=== PATIENT | male | born 1960 | race Caucasian/White ===

== ENCOUNTER 2017-01-07 10:20 | Emergency (ER) | payer MEDICAID ==
[2017-01-07 10:37] VITALS: BP 126/76
--- NOTE | 2017-01-07 11:19 | ERNOTE ---
Integumentary HPI - General Presenting Symptoms: rash Time Seen by Provider: 01/07/17 11:13 Source: patient - Immun/Allergies/Home Medications Immunizations: IMMUNIZATION HX Immunizations Up to Date Yes History of Influenza Vaccine No Hx Pneumococcal Vaccination No Allergies/Adverse Reactions: Allergies Allergy/AdvReac Type Severity Reaction Status Date / Time pioglitazone HCl [From Actos] Allergy Intermediate SEIZURES, Verified 01/07/17 10:37 EDEMA, FATIGUE, FAILURE TO HELP BLOOD SUGARS Home Medications: HOME MEDICATIONS Omeprazole Magnesium [Prilosec Otc] 20 mg PO DAILY 09/07/13 [Last Taken 06/19/14 ] Atorvastatin Calcium [Lipitor] 40 mg PO DAILY 08/26/14 [Last Taken Unknown] Insulin Lispro Protamin/Lispro [Humalog Mix 75/25] 70 units SQ QPM 08/26/14 [ Last Taken Unknown] Acetaminophen [Tylenol] 650 mg PO QID PRN #1 tablet 08/28/14 [Last Taken Unknown ] Glucagon,Human Recombinant [Glucagen] 1 mg IJ PRN PRN 11/29/14 [Last Taken Unknown] rOPINIRole HCL [Requip] 0.25 mg PO HS 11/29/14 [Last Taken Unknown] Blood Sugar Diagnostic, Drum [Accu-Chek Compact] 1 each MC TID 04/10/16 [Last Taken Unknown] Clopidogrel Bisulfate [Plavix] 75 mg PO DAILY 04/10/16 [Last Taken Unknown] Multivit-Min/FA/Lycopen/Lutein [Centrum Silver Ultra Men's Tab] 1 each PO DAILY 04/10/16 [Last Taken Unknown] Cephalexin Monohydrate [Keflex] 500 mg PO QID #40 cap 04/16/16 [Last Taken Unknown] HYDROcodone/ACETAMINOPHEN [[place] 5-325] 1 tab PO Q4H PRN #40 tab 04/16/16 [Last Taken Unknown] Insulin Lispro Protamin/Lispro [Humalog Mix 75/25] 95 units SQ QAM 04/16/16 [ Last Taken Unknown] Hydrocortisone [Hydrocortisone 2.5% Cream] 30 gm TP DAILY 7 Days 01/07/17 [Last Taken Unknown] - History of Present Illness Narrative: itchy irritated red rash on dorsum of right foot. Has been there for one day Review of Systems - Review of Systems Constitutional: Present: no symptoms reported EYE: Present: no symptoms reported ENT: Present: no symptoms reported Respiratory: Present: no symptoms reported Cardiology: Present: no symptoms reported Skin: Present: See HPI - Patient's Past Medical History Patient History - Medical: Diabetes Type 2 Insulin Dependent, GERD Patient History - Cardiac/Respiratory: COPD, CVA/Stroke, Hypertension, Hyperlipidemia, TIA, Other Patient History - Cancer: No Hx of Cancer Patient History - Surgical Procedures: Other Patient History - Other: None - Family History Mother Family History - Medical: Diabetes Type 2 Family History - Cardiac/Respiratory: No pertinent hx Father Family History - Medical: History Unknown Family History - Cardiac/Respiratory: History Unknown - Social History Living Situations: home Abuse History: No History of abuse Psych History: No pertinent hx Does anyone smoke in the home?: Yes Smoking Status: Former smoker Alcohol Use: none Drug Use: none - Immunizations Immunizations Up to Date: Yes Hx Pneumococcal Vaccination: No History of Influenza Vaccine: No Physical Exam - Physical Exam General Appearance: Present: wd/wn, no apparent distress Neck: Present: normal inspection Respiratory: Present: no respiratory distress, normal breath sounds, no accessory muscle use, chest nontender, lungs clear Cardiovascular/Chest: Present: regular rate, rhythm, no murmur, normal peripheral pulses Skin Exam: Present: other - There is a small area of redness with some scaliness and roughness on dorsum of right foot appears eczematoid in nature. No open lesions noted. ED Progress - Vital Signs Patient's Vital Signs:: I have reviewed the patient's vital signs. Vital Signs: Vital Signs 01/07/17 10:30 Temperature 36.6 C Pulse Rate 80 Respiratory 16 Rate Blood Pressure 126/76 O2 Sat by Pulse 96 Oximetry - Progress/Reassessment Chief Complaint: Rash Plan - Plan Plan: I believe this patient has an area of eczematoid like dermatitis on the dorsal aspect of his right foot he will be treated appropriately. Departure Clinical Impression: Dermatitis, eczematoid Qualifiers: Eczema type: unspecified Qualified Code(s): L30.9 - Dermatitis, unspecified - Departure Disposition: Home self-care Condition: Good Instructions: Eczema Referrals: Moises Harrington MD [Primary Care Provider] - Prescriptions: Hydrocortisone [Hydrocortisone 2.5% Cream] 30 gm TP DAILY 7 Days
--- OUTSIDE RECORDS SUMMARY | 2017-01-07 11:20 | XMS REPORT | Continuity of Care Document ---
:1960 Author Organization [facility] ([facility]) Address [place] [address] Phone [phone] Care Team Providers Name Role Phone Bora Mcdaniel Primary Care Provider [phone] Source Comments This disclosure is being made pursuant to the Care Everywhere program, applicable federal and state laws, and may not contain all informaitonavailable regarding this patient.[facility] ([facility]) Active Allergies and Adverse Reactions No Known Allergies Current Medications Prescription Sig. Disp. Refills Start Date End Date Status pioglitazone (ACTOS) 45 Take 45 mg by mouth Active mg tablet daily. metformin (GLUCOPHAGE) Take 1,000 mg by Active 1,000 mg tablet mouth 2 times daily with meals. glimepiride (AMARYL) 4 Take 4 mg by mouth Active mg tablet Every morning. captopril (CAPOTEN) Take 12.5 mg by Active 12.5 mg tablet mouth daily. BUDESONIDE/FORMOTEROL Use 2 Puffs by Active FUMARATE (SYMBICORT inhalation 2 times INH) daily. SERTraline (ZOLOFT) 25 Take one Tab by 30 Tab 4 04/26/2010 Active mg tablet mouth daily for 3 days then take two Tabs by mouth once daily thereafter. Indications: Depression Active Problems Not on file Social History Tobacco Use Types Packs/Day Years Used Date Never Smoker Alcohol Use Drinks/Week oz/Week Comments No Last Filed Vital Signs Vital Sign Reading Time Taken Blood Pressure 106/71 04/26/2010 8:00 AM CDT Pulse 73 04/26/2010 8:00 AM CDT Temperature 35.7 C (96.3 F) 04/26/2010 8:00 AM CDT Respiratory Rate 20 04/26/2010 8:00 AM CDT Height 1.778 m (5' 10") 04/23/2010 1:13 PM CDT Weight 107.956 kg (238 lb) 04/23/2010 1:13 PM CDT Body Mass Index 34.15 04/23/2010 1:13 PM CDT Oxygen Saturation 95% 04/26/2010 8:00 AM CDT Plan of Care Health Maintenance Due Date Last Done Comments HCV Screening 1960 Hepatitis B Vaccine (1 of 3 - Primary Series) 1960 Tdap Vaccine 1969 Lipid Disorder Screening 01/18/1976 MMR Vaccine 01/18/1976 Td Vaccine 01/18/1976 Pneumococcal Vaccine (1 of 1 - PPSV23) 1977 Colonoscopy 2008 Prostate Cancer Screening 01/18/2008 Influenza Vaccine: Seasonal (#1) 05/06/2016 Results from Last 3 Months Not on file
== END 2017-01-07 11:18 | disposition home or self-care (01) ==
LOC: ER 10:20
DX: L30.9 Dermatitis, unspecified (principal); Z87.891 Personal history of nicotine dependence

== ENCOUNTER 2017-03-10 20:19 | Emergency (ER) | payer MEDICAID ==
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
[2017-03-10] MEDS ORDERED: KETOROLAC TROMETHAMINE 60 MG/2 ML VIAL IM ONE ×2 (21:06→21:24)
--- OUTSIDE RECORDS SUMMARY | 2017-03-10 21:09 | XMS REPORT | Continuity of Care Document ---
:1960 Author Organization [facility] ([facility]) Address [place] [address] Phone [phone] Care Team Providers Name Role Phone Bora Mcdaniel Primary Care Provider [phone] Source Comments This disclosure is being made pursuant to the Care Everywhere program, applicable federal and state laws, and may not contain all informaitonavailable regarding this patient.[facility] ([facility]) Active Allergies and Adverse Reactions No Known [...]
[2017-03-10 21:20] LABS: Hematocrit 47.8 % (42.0-52.0); Mean Cell Volume 90.2 fl (78-100); Mean Corpuscular Hemoglobin 30.2 pg (27-31); Mean Corpuscular Hgb Conc 33.5 g/dl (32-36); Mean Platelet Volume 10.1 fl (6.0-9.5); Platelet Count 358 K/mm3 (150-450); White Blood Count 13.1 K/mm3 (4.0-10.5)
[2017-03-10 21:26] LABS: Total Cells Counted 100
[2017-03-10 21:34] LABS: ALT 33 U/L (19-67); AST 18 U/L (0-48); Albumin * 3.8 gm/dl (3.4-5.0); Alkaline Phosphatase * 126 U/L (50-170); Anion Gap 13.4 mmol/L (6.8-13.8); BUN/Creatinine Ratio 14.7 (9.0-21.6); Bilirubin, Total 0.3 mg/dL (0.0-1.1); Blood Urea Nitrogen 17 mg/dL (6-23); Ca. Corrected For Albumin 9.2 mg/dL (8.4-10.2); Calcium * 9.4 mg/dL (7.9-10.9); Carbon Dioxide 29.7 mmol/L (24-32.6); Chloride 104 mmol/L (97-106); Glucose * 127 mg/dL (70-110); Lipase 114 U/L (73-393); Potassium 4.1 mmol/L (3.4-4.6); Sodium 143 mmol/L (132-142); Total Protein 7.6 gm/dL (6.2-8.2)
[2017-03-10 22:01] LABS: Eosinophil 3 % (0-3); Lymphocyte 41 % (20-51); Monocyte 6 % (0-9); Neutrophil 50 % (42-75); Neutrophil # 6.6 K/mm3 (1.3-6.0)
[2017-03-10 22:04] LABS: Dohle Bodies Trace; Platelet Estimate Normal (NORMAL); RBC Morphology Normal (NORMAL); Toxic Granulation Trace
[2017-03-10 22:06] LABS: Urine Bilirubin Negative (NEGATIVE); Urine Blood Negative /ul (NEGATIVE); Urine Ketone Negative (NEGATIVE); Urine Nitrite Negative (NEGATIVE); Urine Protein Negative (NEGATIVE); Urine Urobilinogen Normal (NORMAL)
[2017-03-10 22:14] LABS: Urine Appearance Clear; Urine Color Yellow
[2017-03-10 22:15] LABS: Urine Bacteria None Seen; Urine RBC None Seen /hpf (0-5); Urine WBC None Seen /hpf (0-5)
[2017-03-10 23:58] VITALS: BP 128/74
== END 2017-03-10 23:50 | disposition home or self-care (01) ==
LOC: ER 20:19
DX: R10.11 Right upper quadrant pain (principal); E11.9 Type 2 diabetes mellitus without complications; Z79.4 Long term (current) use of insulin; K21.9 Gastro-esophageal reflux disease without esophagitis; J44.9 Chronic obstructive pulmonary disease, unspecified; Z86.73 Personal history of transient ischemic attack (TIA), and cerebral infarction without residual deficits; I10 Essential (primary) hypertension; E78.5 Hyperlipidemia, unspecified

== ENCOUNTER 2020-11-14 13:05 | Observation (INO) ==
[2020-11-14 13:36] LABS: Hematocrit 49.3 % (42.0-52.0); Hemoglobin 15.9 gm/dL (13.5-18.0); Mean Cell Volume 93.9 fl (78-100); Mean Corpuscular Hemoglobin 30.3 pg (27-31); Mean Corpuscular Hgb Conc 32.3 g/dl (32-36); Mean Platelet Volume 9.6 fl (8-11.3); Neutrophil # 5.4 K/mm3 (1.3-6.0); Neutrophil % 52.3 % (42-75.0); Platelet Count 315 K/mm3 (150-450); Red Blood Count 5.25 M/mm3 (4.7-6.0); Red Cell Distribution Width 14.2 % (11.5-14.0); White Blood Count 10.4 K/mm3 (4.0-10.5)
[2020-11-14 13:51] LABS: ALT 43 U/L (19-67); AST 20 U/L (0-48); Albumin * 3.8 gm/dl (3.4-5.0); Alkaline Phosphatase * 117 U/L (50-170); Anion Gap 12.5 mmol/L (6.8-13.8); BUN/Creatinine Ratio 16.2 (9.0-21.6); Bilirubin, Total 0.3 mg/dL (0.0-1.1); Blood Urea Nitrogen 18 mg/dL (6-23); Ca. Corrected For Albumin 8.9 mg/dL (8.4-10.2); Calcium * 9.1 mg/dL (7.9-10.9); Carbon Dioxide 27.1 mmol/L (24-32.6); Chloride 104 mmol/L (97-106); Glucose * 175 mg/dL (70-110); Potassium 4.6 mmol/L (3.4-4.6); Sodium 139 mmol/L (132-142); Total Protein 7.3 gm/dL (6.2-8.2); Troponin I Less than 0.017 ng/mL (0.00-0.10)
--- NOTE | 2020-11-14 14:29 | ERNOTE ---
Chest Pain/Cardiac HPI Date of Service: 11/14/20 Chief Complaint: Chest Pain Time Seen by Provider: 11/14/20 13:09 Source: patient, family, EMS, RN notes reviewed Exam Limitations: no limitations Immunizations: IMMUNIZATION HX Immunizations Up to Date Yes History of Influenza Vaccine Yes Hx Pneumococcal Vaccination Yes Allergies/Adverse Reactions: Allergies pioglitazone HCl [From Actos] Allergy (Intermediate, Verified 11/14/20 13:14) SEIZURES, EDEMA, FATIGUE, FAILURE TO HELP BLOOD SUGARS Home Medications: HOME MEDICATIONS Omeprazole Magnesium [Prilosec Otc] 20 mg PO DAILY 09/07/13 [Last Taken 06/19/14] Acetaminophen [Tylenol] 650 mg PO QID PRN #1 tab 08/28/14 [Last Taken Unknown] ibuprofen 800 mg tablet 800 mg PO TID #90 tab 11/18/18 [Last Taken Unknown] insulin syringe-needle U-100 0.5 mL 29 gauge x 1/2" See Dose Instructions .ROUTE .MEDSUPPLY #100 ea 05/31/19 [Last Taken Unknown] aspirin 81 mg tablet,delayed release 81 mg PO DAILY 07/26/19 [Last Taken Unknown] CPAP 0 .ROUTE .MEDSUPPLY #1 ea 11/02/19 [Last Taken Unknown] Nitroglycerin 0.4 mg SL PRN PRN 11/17/19 [Last Taken Unknown] pirfenidone 267 mg tablet 267 mg PO TID 12/10/19 [Last Taken Unknown] rosuvastatin 40 mg tablet 40 mg PO DAILY #30 tab 12/28/19 [Last Taken Unknown] tiotropium bromide 18 mcg capsule with inhalation device 1 cap IH DAILY #30 inh 02/14/20 [Last Taken Unknown] ropinirole 0.25 mg tablet 0.25 mg PO HS #90 tab 02/21/20 [Last Taken Unknown] metoprolol succinate 50 mg tablet,extended release 24 hr 50 mg PO DAILY #90 tab 03/13/20 [Last Taken Unknown] albuterol sulfate 1.25 mg IH Q4H PRN #90 ml 06/15/20 [Last Taken Unknown] levothyroxine 50 mcg tablet 50 mcg PO DAILY #90 tab 06/15/20 [Last Taken Unknown] blood sugar diagnostic See Rx Instructions .ROUTE .COMPLEX #100 ea 08/09/20 [Last Taken Unknown] insulin syringe-needle U-100 1 mL 31 gauge x 5/16" See Dose Instructions .ROUTE .MEDSUPPLY #100 ea 08/16/20 [Last Taken Unknown] insulin lispro protamine-lispro 100 unit/mL (75-25) subcutaneous susp See Rx Instructions SUBCUT DAILY #60 ml 09/27/20 [Last Taken Unknown] budesonide-formoterol HFA 160 mcg-4.5 mcg/actuation aerosol inhaler See Rx Instructions .ROUTE .COMPLEX #10.2 unknown measurement unit code: gram 09/28/20 [Last Taken Unknown] insulin detemir U-100 100 unit/mL (3 mL) subcutaneous pen 30 unit SUBCUT DAILY #15 ml 10/16/20 [Last Taken Unknown] pen needle, diabetic 29 gauge x 1/2" See Rx Instructions .ROUTE .MEDSUPPLY #100 ea 10/17/20 [Last Taken Unknown] Cyclobenzaprine HCl [Flexeril] 10 mg PO TID PRN #20 tab 11/09/20 [Last Taken Unknown] Narrative: Matthieu is a 60-year-old male brought to the emergency department by ambulance from his home for chest pain. He reports that a short while ago he was just sitting at home, not doing anything in particular, when he began having left-sided chest pain. He also reports feeling short of breath at the time. He states that he felt as if someone was sitting on his chest. He took 2 nitro without improvement. When EMS arrived he was given an additional 2 nitro. His pain is currently resolved. He seems very groggy and does not appear to feel well. He reports that he was feeling fine all morning until this episode. He was recently seen for back pain due to a fall on the ice. He was prescribed Flexeril but his reports that he is only been taking this at bedtime. Date (Duration): 11/14/20 Timing: resolved prior to arrival Severity/Quality: severe, pressure Location: left chest Chest Pain Radiation: no radiation Activities at Onset: rest Modifying Factors - Improves: Present: nitroglycerin Modifying Factors - Worsens: Present: nothing Aspirin Treatment Today: 81 mg x 4, provided by EMS Associated Symptoms: Absent: cough, fever/chills, nausea, vomiting, back pain Prior Treatment: Reports: recently seen Medical History (Last Reviewed 11/14/20 @ 16:00 by Maryjane Pleitez NP) Neuropathy (Chronic) Onset Date: ~01/30/11 Left ventricular hypertrophy (Chronic) Onset Date: ~08/31/14 Mild concentric left ventricular hypertrophy diastolic dysfunction [facility] echo 08/29/14 Hypertension (Chronic) Onset Date: ~12/28/13 Heartburn (Chronic) Onset Date: Unknown Erectile dysfunction (Chronic) Onset Date: Unknown COPD (chronic obstructive pulmonary disease) (Chronic) Onset Date: ~04/10/16 Muscle strain Onset Date: ~07/23/15 right gastrocnemius Pulmonary fibrosis Pulmonary fibrosis TIA (transient ischemic attack) Onset Date: ~09/15/14 Surgical History: Surgical History (Last Reviewed 11/14/20 @ 16:00 by Maryjane Pleitez NP) H/O hernia repair Onset Date: ~1998 Repaired 5 hernias History of splenectomy Onset Date: ~1996 Family History: Family History (Last Reviewed 11/14/20 @ 16:00 by Maryjane Pleitez NP) Other Cancer Diabetes Heart disease Hypertension Social History: (Last Reviewed 11/14/20 @ 16:00 by Maryjane Pleitez NP) Social History: adopted: No Marital status: lives independently: Yes household members: spouse number of children: 2 current occupational status: employed current occupation: [employer] Highest level of school completed/degree received: high school graduate Service: Yes Tobacco: Smoking Status: Former smoker Alcohol: alcohol intake: current Alcohol type: hard liquor alcohol intake frequency: holiday/special occasion details: ocassional shot of bourbon Substance Use: substance use type: does not use Dietary Habits: caffeine: Yes Physical Exam - Physical Exam General Appearance: Present: alert, obese, other - In no acute distress but appears to not feel well Head Exam: Present: normal inspection Eye Exam: Normal inspection: bilateral Neck: Present: normal inspection, nontender, supple Respiratory: Present: no respiratory distress, normal breath sounds, no accessory muscle use, lungs clear Cardiovascular/Chest: Present: regular rate, rhythm, no murmur, normal peripheral pulses Gastrointestinal/Abdominal: Present: nontender, soft, distended - Obese Extremity Exam: Present: normal inspection, non-tender, no edema Neurological Exam: Present: alert, oriented, normal mood/affect, no motor/sensory deficits Skin Exam: Present: normal color, warm/dry Progress - Results and Orders Patient's Lab Results:: I have reviewed the patient's lab results. - Vital Signs Patient's Vital Signs:: I have reviewed the patient's vital signs. Vital Signs: Vital Signs 11/14/20 13:07 Temperature 36.6 C Pulse Rate 95 Respiratory Rate 19 Blood Pressure 125/75 O2 Sat by Pulse Oximetry 98 - EKG EKG #1 EKG: NSR EKG read: Reviewed by me - Progress/Reassessment Chief Complaint: Chest Pain Progress:: Improved Progress Note-Subjective: 11/14/20 14:35 EKG is without acute findings and troponin is normal, the patient has had no further chest pain however he is groggy and generally ill appearing. Dr. Susan Sotelo was contacted and agreed to admit the patient for observation pending COVID-19 test results. Departure Clinical Impression: Chest pain, rule out acute myocardial infarction - Departure Disposition: Still a patient Condition: Stable Referrals: Moises Harrington MD [Primary Care Provider] -
[2020-11-14] MEDS ORDERED: ACETAMINOPHEN 325 MG TABLET PO PRN (18:36)
[2020-11-14] MEDS ORDERED: CYCLOBENZAPRINE HCL 10 MG TABLET PO PRN (18:36)
[2020-11-14] MEDS ORDERED: ALBUTEROL SULFATE 200 PUFF INHALER IH PRN (18:43)
[2020-11-14] MEDS ORDERED: NITROGLYCERIN 0.4 MG/TAB BTL SL PRN (18:45)
--- NOTE | 2020-11-14 19:01 | HP ---
Chief Complaint - Chief Complaint Date of Service: 11/14/20 Time of Service: 18:20 Chief Complaint: Chest Pain History of Present Illness: Matthieu is a 60-year-old diabetic male brought to the emergency department by ambulance from his home for chest pain. Just before noon he developed left sided chest pain while sitting at home. He reports feeling short of breath and nauseated at the time. The pain did not radiate. He states that he felt as if someone was sitting on his chest. He took 2 nitro without improvement. When EMS arrived he was given an additional 2 nitro. His pain was almost gone when he reached the ER and is pain free now. He had similar pain just prior to three coronary artery stents. The ER provider explained that in the ER he looked very groggy and didn't appear to feel well. He looks to be his normal self to me at the time of this exam. He reports that he was feeling fine all morning until this episode. He was recently seen for lower back pain due to a fall on the ice. He was prescribed Flexeril but his reports that he is only been taking this at bedtime. That pain has improved. Workup in the ER was nonrevealing. His bonding machine operator is at the [facility]. We will repeat EKG and troponin 6 hours after the first set. Sometime tomorrow I will work at communicating with his bonding machine operator. We will continue to monitor him here. I did not prescribe his usual Pirfenidone 267 mg po tid for his pulmonary fibrosis because it is not on formulary here. Medical History (Last Reviewed 11/14/20 @ 18:53 by Moises Harrington MD) Neuropathy (Chronic) Onset Date: ~01/30/11 Left ventricular hypertrophy (Chronic) Onset Date: ~08/31/14 Mild concentric left ventricular hypertrophy diastolic dysfunction [facility] echo 08/29/14 Hypertension (Chronic) Onset Date: ~12/28/13 Heartburn (Chronic) Onset Date: Unknown Erectile dysfunction (Chronic) Onset Date: Unknown COPD (chronic obstructive pulmonary disease) (Chronic) Onset Date: ~04/10/16 Muscle strain Onset Date: ~07/23/15 right gastrocnemius Pulmonary fibrosis Pulmonary fibrosis TIA (transient ischemic attack) Onset Date: ~09/15/14 Surgical History: Surgical History (Last Reviewed 11/14/20 @ 18:53 by Moises Harrington MD) Hx of heart artery stent H/O hernia repair Onset Date: ~1998 Repaired 5 hernias History of splenectomy Onset Date: ~1996 Family History: Family History (Last Reviewed 11/14/20 @ 18:53 by Moises Harrington MD) Other Cancer Diabetes Heart disease Hypertension Patient's mother is Social History: (Last Reviewed 11/14/20 @ 18:54 by Moises Harrington MD) Social History: adopted: No Marital status: lives independently: Yes household members: spouse number of children: 2 current occupational status: employed current occupation: [employer] Highest level of school completed/degree received: high school graduate Service: Yes Tobacco: Smoking Status: Former smoker Alcohol: alcohol intake: current Alcohol type: hard liquor alcohol intake frequency: holiday/special occasion details: ocassional shot of bourbon Substance Use: substance use type: does not use Dietary Habits: caffeine: Yes Review Of Systems (GEN) - Review of Systems Generalized/Overall Review: Present: No Symptoms Reported EENTM: Present: No Symptoms Reported Respiratory: Present: Cough - his normal chronic cough Cardiac: Present: No Symptoms Reported - the pressure like chest pain is now gone Abdominal: Present: No Symptoms Reported Genitourinary: Present: No Symptoms Reported Musculoskeletal: Present: No Symptoms Reported Neurological: Present: Numbness - both feet from diabetes Skin: Present: No Symptoms Reported Endocrine: Present: No Symptoms Reported Misc: All systems neg except as marked Immunizations: IMMUNIZATION HX Immunizations Up to Date Yes History of Influenza Vaccine Yes Hx Pneumococcal Vaccination Yes Allergies/Adverse Reactions: Allergies Allergy/AdvReac Type Severity Reaction Status Date / Time pioglitazone HCl [From Actos] Allergy Intermediate SEIZURES, Verified 11/14/20 13:14 EDEMA, FATIGUE, FAILURE TO HELP BLOOD SUGARS Home Medications: HOME MEDICATIONS RX: Omeprazole Magnesium [Prilosec Otc] 20 mg PO DAILY 09/07/13 [Last Taken 06/19/14] Acetaminophen [Tylenol] 650 mg PO QID PRN #1 tab 08/28/14 [Last Taken Unknown] ibuprofen 800 mg tablet 800 mg PO TID #90 tab 11/18/18 [Last Taken Unknown] insulin syringe-needle U-100 0.5 mL 29 gauge x 1/2" See Dose Instructions .ROUTE .MEDSUPPLY #100 ea 05/31/19 [Last Taken Unknown] aspirin 81 mg tablet,delayed release 81 mg PO DAILY 07/26/19 [Last Taken Unknown] CPAP 0 .ROUTE .MEDSUPPLY #1 ea 11/02/19 [Last Taken Unknown] RX: Nitroglycerin 0.4 mg SL PRN PRN 11/17/19 [Last Taken Unknown] pirfenidone 267 mg tablet 267 mg PO TID 12/10/19 [Last Taken Unknown] rosuvastatin 40 mg tablet 40 mg PO DAILY #30 tab 12/28/19 [Last Taken Unknown] tiotropium bromide 18 mcg capsule with inhalation device 1 cap IH DAILY #30 inh 02/14/20 [Last Taken Unknown] ropinirole 0.25 mg tablet 0.25 mg PO HS #90 tab 02/21/20 [Last Taken Unknown] metoprolol succinate 50 mg tablet,extended release 24 hr 50 mg PO DAILY #90 tab 03/13/20 [Last Taken Unknown] albuterol sulfate 1.25 mg IH Q4H PRN #90 ml 06/15/20 [Last Taken Unknown] levothyroxine 50 mcg tablet 50 mcg PO DAILY #90 tab 06/15/20 [Last Taken Unknown] blood sugar diagnostic See Rx Instructions .ROUTE .COMPLEX #100 ea 08/09/20 [Last Taken Unknown] insulin syringe-needle U-100 1 mL 31 gauge x 5/16" See Dose Instructions .ROUTE .MEDSUPPLY #100 ea 08/16/20 [Last Taken Unknown] insulin lispro protamine-lispro 100 unit/mL (75-25) subcutaneous susp See Rx Instructions SUBCUT DAILY #60 ml 09/27/20 [Last Taken Unknown] budesonide-formoterol HFA 160 mcg-4.5 mcg/actuation aerosol inhaler See Rx Instructions .ROUTE .COMPLEX #10.2 unknown measurement unit code: gram 09/28/20 [Last Taken Unknown] insulin detemir U-100 100 unit/mL (3 mL) subcutaneous pen 30 unit SUBCUT DAILY #15 ml 10/16/20 [Last Taken Unknown] pen needle, diabetic 29 gauge x 1/2" See Rx Instructions .ROUTE .MEDSUPPLY #100 ea 10/17/20 [Last Taken Unknown] Cyclobenzaprine HCl [Flexeril] 10 mg PO TID PRN #20 tab 11/09/20 [Last Taken Unknown] Exam - Exam Vital Signs: Vital Signs - Last Taken Temp 36.7 C 11/14/20 18:36 Pulse 94 11/14/20 18:36 Resp 16 11/14/20 18:36 BP 128/68 11/14/20 18:36 Pulse Ox 97 11/14/20 18:36 Constitutional: Present: Alert, Oriented x3, Cooperative, Well developed, Morbidly obese ENT Exam: Present: normal ENT inspection, hearing grossly normal Eye Exam: bilateral eye: normal inspection, PERRL, EOMI Neck: Absent: lymphadenopathy (R), lymphadenopathy (L), thyromegaly Back Exam: Present: normal inspection, vertebral tenderness - low back from fall Breasts: Present: Other - male Respiratory: Present: lungs clear, no respiratory distress, decreased breath sounds Cardiovascular/Chest: Present: regular rate, rhythm, no chest tenderness, no gallop, no JVD, no murmur Peripheral Pulses: carotid (R): 1+, carotid (L): 1+, femoral (R): 1+, femoral (L): 1+ Abdomen: Present: Normal bowel sounds, soft, nontender, nondistended, no hepatospenomegaly, no masses, obese /Rectal: Present: Exam deferred Extremity: Present: normal capillary refill, other - slight edema both lower legs Skin Exam: Present: normal color, warm/dry, no cyanosis Lymphatic: Present: no adenopathy Neurologic: Present: normal mood/affect Appearance: Present: appropriate appearance, appropriate insight, neat Eye contact: Present: cooperative, good eye contact, normal speech Diagnostic Studies: Abnormal Lab Results 11/14/20 11/14/20 Range/Units 13:27 13:27 RDW 14.2 H (11.5-14.0) % Immature Gran % (Auto) 0.50 H (0.001-0.429) % Immature Gran # (Auto) 0.05 H (0.000-0.0310) K/mm3 Monocytes % 12.4 H (0.0-9) % Eosinophils % 3.2 H (0.0-3.0) % Monocytes # 1.3 H (0.0-1.0) k/mm3 Random Glucose 175 H (70-110) mg/dL Laboratory Results WBC 10.4 K/mm3 (4.0-10.5) 11/14/20 13:27 RBC 5.25 M/mm3 (4.7-6.0) 11/14/20 13:27 Hgb 15.9 gm/dL (13.5-18.0) 11/14/20 13:27 Hct 49.3 % (42.0-52.0) 11/14/20 13:27 MCV 93.9 fl (78-100) 11/14/20 13:27 MCH 30.3 pg (27-31) 11/14/20 13:27 MCHC 32.3 g/dl (32-36) 11/14/20 13:27 RDW 14.2 % (11.5-14.0) H 11/14/20 13:27 Plt Count 315 K/mm3 (150-450) 11/14/20 13:27 MPV 9.6 fl (8-11.3) 11/14/20 13:27 Immature Gran % (Auto) 0.50 % (0.001-0.429) H 11/14/20 13:27 Immature Gran # (Auto) 0.05 K/mm3 (0.000-0.0310) H 11/14/20 13:27 Neutrophils % 52.3 % (42-75.0) 11/14/20 13:27 Lymphocytes % 31.0 % (20-51) 11/14/20 13:27 Monocytes % 12.4 % (0.0-9) H 11/14/20 13:27 Eosinophils % 3.2 % (0.0-3.0) H 11/14/20 13:27 Basophils % 0.6 % (0.0-1.0) 11/14/20 13:27 Nucleated RBC % 0.0 k/mm3 (0-1) 11/14/20 13:27 Neutrophils # 5.4 K/mm3 (1.3-6.0) 11/14/20 13:27 Lymphocytes # 3.21 k/mm3 (1.5-3.5) 11/14/20 13:27 Monocytes # 1.3 k/mm3 (0.0-1.0) H 11/14/20 13:27 Eosinophils # 0.3 k/mm3 (0.0-0.7) 11/14/20 13:27 Absolute Basophils 0.1 k/mm3 (0.0-0.1) 11/14/20 13:27 D-Dimer 0.41 ug/mL (0.19-0.49) 11/14/20 13:27 Sodium 139 mmol/L (132-142) 11/14/20 13:27 Plasma Sodium 140 mmol/L (130-142) 11/14/20 13:27 Potassium 4.6 mmol/L (3.4-4.6) 11/14/20 13:27 Chloride 104 mmol/L (97-106) 11/14/20 13:27 Carbon Dioxide 27.1 mmol/L (24-32.6) 11/14/20 13:27 Anion Gap 12.5 mmol/L (6.8-13.8) 11/14/20 13:27 BUN 18 mg/dL (6-23) 11/14/20 13:27 Creatinine 1.11 mg/dL (0.4-1.4) 11/14/20 13:27 Est GFR (Non-Af Amer) 71 mL/min (60-130) 11/14/20 13:27 BUN/Creatinine Ratio 16.2 (9.0-21.6) 11/14/20 13:27 Random Glucose 175 mg/dL (70-110) H 11/14/20 13:27 Calcium 9.1 mg/dL (7.9-10.9) 11/14/20 13:27 Calcium Adj for Albumin 8.9 mg/dL (8.4-10.2) 11/14/20 13:27 Total Bilirubin 0.3 mg/dL (0.0-1.1) 11/14/20 13:27 AST 20 U/L (0-48) 11/14/20 13:27 ALT 43 U/L (19-67) 11/14/20 13:27 Alkaline Phosphatase 117 U/L (50-170) 11/14/20 13:27 Troponin I Less than 0.017 ng/mL (0.00-0.10) 11/14/20 13:27 Total Protein 7.3 gm/dL (6.2-8.2) 11/14/20 13:27 Albumin 3.8 gm/dl (3.4-5.0) 11/14/20 13:27 SARS-CoV-2 (PCR) Not detected (NotDetected) 11/14/20 14:37 Assessment/Plan - Assessment/Plan (1) Chest pain, rule out acute myocardial infarction Problem: Acute (2) Unstable angina Assessment: sequential troponin and panel monitor in hospital contact his bonding machine operator tomorrow Problem: Acute (3) Hypertension Problem: Chronic Qualifiers: Hypertension type: essential hypertension (4) BMI 40.0-44.9, adult Problem: Chronic (5) Status post coronary artery stent placement Problem: Chronic (6) Type 2 diabetes mellitus Problem: Chronic Qualifiers: Diabetes mellitus exterminator helper insulin use: with assisted use Diabetes mellitus complication status: with neurologic complications Diabetes mellitus complication detail: with polyneuropathy Qualified Code(s): E11.42 - Type 2 diabetes mellitus with diabetic polyneuropathy; Z79.4 - [facility]iary (current) use of insulin (7) DAHLIA on CPAP Assessment: we will continue CPAP when sleeping Problem: Chronic (8) Pulmonary fibrosis Assessment: we did not prescribe pirfenidone tonight because it is not on hospital formulary. Problem: Chronic
[2020-11-14] MEDS: FLUTICASONE PROPION/SALMETEROL 14 PUFF DISK.W.DEV IH SCH (20:14)
[2020-11-14] MEDS ORDERED: rOPINIRole HCL 0.5 MG TABLET PO SCH (21:00)
[2020-11-15] MEDS ORDERED: INSUL NPH HU REC/INS RG HU REC 100 UNITS/ML VIAL SC SCH (07:00)
[2020-11-15] MEDS ORDERED: LEVOTHYROXINE SODIUM 50 MCG TABLET PO SCH (07:00)
--- NOTE | 2020-11-15 07:19 | PN ---
Subjective - Date and Time Seen Date: 11/15/20 Time: 06:30 Subjective Narrative: Matthieu is a 60-year-old diabetic male brought to the emergency department yesterday by ambulance from his home for chest pain. Just before noon he developed left sided chest pain while sitting at home. He reported feeling short of breath and nauseated at the time. The pain did not radiate. He stated that he felt as if someone was sitting on his chest. He took 2 nitro without improvement. When EMS arrived he was given an additional 2 nitro. His pain was almost gone when he reached the ER and he has remained pain free since. He had similar pain just prior to three coronary artery stents. The ER provider explained that in the ER he looked very groggy and didn't appear to feel well. He looks to be his normal self to me this morning. His lower back pain due to a fall on the ice is improving. He was prescribed Flexeril but his reported that he is only took that at bedtime. Workup in the ER was nonrevealing. He corrected me this morning: his tongue carrier is at [facility]. I will work at speaking with one of them this morning to help determine further evaluation/treatment. Objective - Review of Systems Generalized/Overall Review: Reports: No Symptoms Reported - fingerstick b.s. last night was 190 EENTM: Reports: No Symptoms Reported Respiratory: Reports: Cough - chronic, no change, former smoker, also has pulmonary fibrosis Cardiac: Reports: No Symptoms Reported Abdominal: Reports: No Symptoms Reported Genitourinary Symptoms: Reports: No Symptoms Reported Musculoskeletal Complaints: Reports: No Symptoms Reported Neurological: Reports: No Symptoms Reported Skin: Reports: No Symptoms Reported Endocrine: Reports: No Symptoms Reported Misc: All systems neg except as marked - Vitals Vitals: Last Vital Signs Temp 37.7 C 11/15/20 06:00 Pulse 82 11/15/20 06:00 Resp 13 11/15/20 06:00 BP 141/75 11/15/20 06:00 Pulse Ox 93 11/15/20 06:00 - Abnormal Lab Findings Abnormal Lab Findings: Abnormal Lab Results 11/14/20 11/14/20 Range/Units 13:27 13:27 RDW 14.2 H (11.5-14.0) % Immature Gran % (Auto) 0.50 H (0.001-0.429) % Immature Gran # (Auto) 0.05 H (0.000-0.0310) K/mm3 Monocytes % 12.4 H (0.0-9) % Eosinophils % 3.2 H (0.0-3.0) % Monocytes # 1.3 H (0.0-1.0) k/mm3 Random Glucose 175 H (70-110) mg/dL - Exam Constitutional: Present: Alert, Oriented x3, Cooperative, Well developed, Obese ENT Exam: Present: normal ENT inspection, hearing grossly normal Neck: Absent: lymphadenopathy (R), lymphadenopathy (L), thyromegaly Breasts: Present: Other - male Respiratory: Present: lungs clear, no respiratory distress Cardiovascular/Chest: Present: regular rate, rhythm, no gallop, no JVD, no murmur Abdomen: Present: Normal bowel sounds, soft, nontender, nondistended, no hepatospenomegaly, no masses, obese /Rectal: Present: Exam deferred Extremity: Present: normal capillary refill, lower extremity edema - minimal Skin Exam: Present: normal color, warm/dry, no cyanosis Lymphatic: Present: no adenopathy Neurologic: Present: normal mood/affect Appearance: Present: appropriate appearance, appropriate insight, neat Eye contact: Present: cooperative, good eye contact, normal speech Thoughts: Present: normal thought pattern Assessment/Plan - Problems/Diagnosis (1) Chest pain, rule out acute myocardial infarction Problem: Acute (2) Unstable angina Problem: Acute (3) Hypertension Problem: Chronic Qualifiers: Hypertension type: essential hypertension Narrative: sequential troponins and EKGs normal. will try to contact his tongue carrier at [facility], this morning. will continue to monitor in hospital. (4) BMI 40.0-44.9, adult Problem: Chronic (5) Status post coronary artery stent placement Problem: Chronic (6) Type 2 diabetes mellitus Problem: Chronic Qualifiers: Diabetes mellitus half-way insulin use: with half-way use Diabetes mellitus complication status: with neurologic complications Diabetes mellitus complication detail: with polyneuropathy Qualified Code(s): E11.42 - Type 2 diabetes mellitus with diabetic polyneuropathy; Z79.4 - [facility] (current) use of insulin (7) DAHLIA on CPAP Problem: Chronic (8) Pulmonary fibrosis Problem: Chronic
[2020-11-15] MEDS ORDERED: ALBUTEROL SULFATE 2.5 MG/0.5 ML VIAL.NEB IH PRN (07:45)
[2020-11-15] MEDS: FLUTICASONE PROPION/SALMETEROL 14 PUFF DISK.W.DEV IH SCH (08:34)
--- NOTE | 2020-11-15 08:40 | DS ---
(1) Chest pain, rule out acute myocardial infarction Problem: Resolved (2) Unstable angina Problem: Resolved (3) Hypertension Problem: Chronic Qualifiers: Hypertension type: essential hypertension Qualified Code(s): I10 - Essential (primary) hypertension (4) BMI 40.0-44.9, adult Problem: Chronic (5) Status post coronary artery stent placement Problem: Chronic (6) Type 2 diabetes mellitus Problem: Chronic Qualifiers: Diabetes mellitus terminal clerk insulin use: with terminal clerk use Diabetes mellitus complication status: with neurologic complications Diabetes mellitus complication detail: with polyneuropathy Qualified Code(s): E11.42 - Type 2 diabetes mellitus with diabetic polyneuropathy; Z79.4 - superintendent marine oil terminal (current) use of insulin (7) DAHLIA on CPAP Problem: Chronic (8) Pulmonary fibrosis Problem: Chronic Date of Discharge:: 11/15/20 Hospital Course: Matthieu is a 60-year-old diabetic male brought to the emergency department yesterday by ambulance from his home for chest pain. Just before noon yesterday he developed left sided chest pain while sitting at home. He reported feeling short of breath and nauseated at the time. The pain did not radiate. He stated that he felt as if someone was sitting on his chest. He took 2 nitro without improvement. When EMS arrived he was given an additional 2 nitro. His pain was almost gone when he reached the ER and he has remained pain free since. He had similar pain just prior to three coronary artery stents. The ER provider explained that in the ER he looked very groggy and didn't appear to feel well. He looks to be his normal self to me this morning. He has lower back pain due to a fall on the ice recently which is improving. He was prescribed Flexeril for that but his reported that he only took it at bedtime. Workup in the ER was nonrevealing. I spoke with his industrial energy engineer at [facility] in [place], Dr. Adams, this morning about 8:30. I explained the situation. He told me Matthieu can go home. He asked me to prescribe long acting nitroglycerin 30 mg daily. His nurse will call Matthieu to set up an appt with him or with one of his colleagues. He said if Matthieu develops chest pain again, he should take sublingual nitroglycerin, and if the pain goes away, he should call their office. He said if the chest pain is severe or prolonged he should again call 911. Procedures Performed: none Results and Findings: Lab Pending Results 11/14/20 13:27: WBC 10.4, RBC 5.25, Hgb 15.9, Hct 49.3, MCV 93.9, MCH 30.3, MCHC 32.3, RDW 14.2 H, Plt Count 315, MPV 9.6, Immature Gran % (Auto) 0.50 H, Immature Gran # (Auto) 0.05 H, Neutrophils % 52.3, Lymphocytes % 31.0, Monocytes % 12.4 H, Eosinophils % 3.2 H, Basophils % 0.6, Nucleated RBC % 0.0, Neutrophils # 5.4, Lymphocytes # 3.21, Monocytes # 1.3 H, Eosinophils # 0.3, Absolute Basophils 0.1 11/14/20 13:27: Sodium 139, Plasma Sodium 140, Potassium 4.6, Chloride 104, Carbon Dioxide 27.1, Anion Gap 12.5, BUN 18, Creatinine 1.11, Est GFR (Non-Af Amer) 71, BUN/Creatinine Ratio 16.2, Random Glucose 175 H, Calcium 9.1, Calcium Adj for Albumin 8.9, Total Bilirubin 0.3, AST 20, ALT 43, Alkaline Phosphatase 117, Troponin I Less than 0.017, Total Protein 7.3, Albumin 3.8 11/14/20 13:27: D-Dimer 0.41 11/14/20 14:37: SARS-CoV-2 (PCR) Not detected 11/14/20 19:24: Troponin I Less than 0.017 Discharge Location: Home Disposition: Home self-care Condition: Stable Discharge Activity: Activity as tolerated Discharge Diet: Consistent carbs, Low fat/chol Referrals: Moises Harrington MD [Primary Care Provider] - Additional Patient Instructions (free text): Dr Adams's ([facility]) office will call you with your follow up appointment. Call Dr. Adams's office if you have chest pain again, unless it is severe or prolonged, in which case you should again call 911. [address] Lundy's office for all other problems or questions. Make an appt to see Dr. Lundy in the office in 2 weeks. Complete Home Medications List: Complete Home Medication List: Omeprazole Magnesium [Prilosec Otc] 20 mg PO DAILY 09/07/13 Acetaminophen [Tylenol] 650 mg PO QID PRN #1 tab 08/28/14 ibuprofen 800 mg tablet 800 mg PO TID #90 tab 11/18/18 insulin syringe-needle U-100 0.5 mL 29 gauge x 1/2" See Dose Instructions .ROUTE .MEDSUPPLY #100 ea 05/31/19 aspirin 81 mg tablet,delayed release 81 mg PO DAILY 07/26/19 CPAP 0 .ROUTE .MEDSUPPLY #1 ea 11/02/19 Nitroglycerin 0.4 mg SL PRN PRN 11/17/19 pirfenidone 267 mg tablet 267 mg PO TID 12/10/19 rosuvastatin 40 mg tablet 40 mg PO DAILY #30 tab 12/28/19 tiotropium bromide 18 mcg capsule with inhalation device 1 cap IH DAILY #30 inh 02/14/20 ropinirole 0.25 mg tablet 0.25 mg PO HS #90 tab 02/21/20 metoprolol succinate 50 mg tablet,extended release 24 hr 50 mg PO DAILY #90 tab 03/13/20 albuterol sulfate 1.25 mg IH Q4H PRN #90 ml 06/15/20 levothyroxine 50 mcg tablet 50 mcg PO DAILY #90 tab 06/15/20 blood sugar diagnostic See Rx Instructions .ROUTE .COMPLEX #100 ea 08/09/20 insulin syringe-needle U-100 1 mL 31 gauge x 5/16" See Dose Instructions .ROUTE .MEDSUPPLY #100 ea 08/16/20 insulin lispro protamine-lispro 100 unit/mL (75-25) subcutaneous susp See Rx Instructions SUBCUT DAILY #60 ml 09/27/20 budesonide-formoterol HFA 160 mcg-4.5 mcg/actuation aerosol inhaler See Rx Instructions .ROUTE .COMPLEX #10.2 unknown measurement unit code: gram 09/28/20 insulin detemir U-100 100 unit/mL (3 mL) subcutaneous pen 30 unit SUBCUT DAILY #15 ml 10/16/20 pen needle, diabetic 29 gauge x 1/2" See Rx Instructions .ROUTE .MEDSUPPLY #100 ea 10/17/20 Isosorbide Mononitrate [Imdur] 30 mg PO DAILY #30 tab 11/15/20 Forms: Patient Portal Registration
[2020-11-15] MEDS ORDERED: TIOTROPIUM BROMIDE 5 CAP INHALER IH SCH (09:00)
[2020-11-15] MEDS ORDERED: INSULIN GLARGINE,HUM.REC.ANLOG 100 UNITS/ML VIAL SC SCH (09:00)
[2020-11-15] MEDS ORDERED: ASPIRIN 81 MG TABLET.DR PO SCH (09:00)
[2020-11-15] MEDS ORDERED: METOPROLOL SUCCINATE 50 MG TABLET.SA PO SCH (09:00)
[2020-11-15 10:42] VITALS: BP 130/71
[2020-11-15] MEDS ORDERED: ROSUVASTATIN CALCIUM 20 MG TABLET PO SCH (21:00)
[2020-11-16] MEDS ORDERED: PANTOPRAZOLE SODIUM 20 MG TABLET.DR PO SCH (07:00)
== END 2020-11-15 11:05 | disposition home or self-care (01) ==
LOC: MS 13:05 → ER 13:05 → MS 16:22
PROVIDERS: ADMIT Allergy & Immunology; ATTEND Allergy & Immunology